=== PATIENT | male | born 1990 | race Caucasian/White ===

== ENCOUNTER 2020-07-09 11:11 | Emergency (ER) | payer BC ==
[2020-07-09 12:23] LABS: Bacteria/HPF None Seen HPF (None Seen); Bilirubin Negative (Negative); Blood, Urine 3+ (Negative); Clarity Extra Turbid (Clear); Glucose, Urine (Dipstick) Normal (Negative); Ketone, Urine Negative (Negative); Leukocyte Negative Leu/uL (Negative); Nitrite Negative (Negative); Protein, Urine (Dipstick) 10 mg/dL (Neg-Trace); RBC/HPF Greater than 50 HPF (0-3); Squamous Epithelial None Seen HPF (0-3); Urobilinogen Normal mg/dL (Less than 2); WBC/HPF None Seen HPF (0-3); pH, Urine 7.5 (5.0-9.0)
[2020-07-09] MEDS ORDERED: Ketorolac Tromethamine 30 MG/ML VIAL ONE (12:52)
[2020-07-09 15:01] LABS: Anion Gap 13 mmol/L (10-20); BUN (Urea Nitrogen) 12 mg/dL (8.9-20.6); Calc. Creatinine Clearance 0 mL/min (70-130); Calcium 9.2 mg/dL (7.8-10.44); Carbon Dioxide 28 mmol/L (22-29); Chloride 105 mmol/L (98-107); Glucose 87 mg/dL (70-105); Potassium 4.1 mmol/L (3.5-5.1); Sodium 142 mmol/L (136-145)
== END 2020-07-09 15:35 | disposition home or self-care (01) ==
LOC: ERS 11:11
DX: N20.2 Calculus of kidney with calculus of ureter (principal); I10 Essential (primary) hypertension; F17.210 Nicotine dependence, cigarettes, uncomplicated
CPT/HCPCS: 36415; 74176; 80048; 81003; 81015; 96372; J1885

== ENCOUNTER 2020-07-22 08:19 | Outpatient (CLI) | payer BC ==
[2020-07-22 10:07] LABS: Hemoglobin 13.9 g/dL (13.5-17.5); Mean Corpuscular Hemoglobin 28.2 pg (27.0-33.0); Mean Platelet Volume 11.6 fl (7.4-10.4); Platelet Count 231 10x3/uL (150-450); RBC Distribution Width 12.7 % (11.5-14.5); Red Blood Cell (RBC) Count 4.93 10x6/uL (4.32-5.72)
[2020-07-22 10:13] LABS: Bilirubin Neg (Negative); Blood, Urine 150 (Negative); Clarity Clear (Clear); Glucose, Urine (Dipstick) Normal (Negative); Ketone, Urine Negative (Negative); Leukocyte Negative (Negative); Nitrite Negative (Negative); Protein, Urine (Dipstick) Negative (Neg-Trace); Specific Gravity, Urine 1.025 (1.002-1.036); Urobilinogen Normal mg/dL (Less than 2)
[2020-07-22 10:14] LABS: Anion Gap 13 mmol/L (10-20); BUN (Urea Nitrogen) 13 mg/dL (8.9-20.6); Calc. Creatinine Clearance 0 mL/min (70-130); Calcium 9.1 mg/dL (7.8-10.44); Carbon Dioxide 26 mmol/L (22-29); Chloride 106 mmol/L (98-107); Glucose 72 mg/dL (70-105); Potassium 4.5 mmol/L (3.5-5.1); Sodium 140 mmol/L (136-145)
[2020-07-22 10:40] LABS: PTT 29.5 sec (22.0-33.0); Prothrombin Time 10.5 sec (9.5-12.1)
[2020-07-22 10:45] LABS: Bacteria/HPF None Seen HPF (None Seen); Mucous/LPF 1+ LPF (<2+); Sperm/HPF 1+ HPF (None Seen); Squamous Epithelial 0-3 HPF (0-3)
[2020-07-22 18:59] LABS: SARS-CoV-2 PCR by NAA Not Detected (NotDetected)
== END 2020-07-22 08:20 | disposition home or self-care (01) ==
LOC: LABBT 08:19
PROVIDERS: ATTEND Urology
DX: Z01.812 Encounter for preprocedural laboratory examination (principal); N20.0 Calculus of kidney; Z20.822 Contact with and (suspected) exposure to COVID-19
CPT/HCPCS: 80048; 81001; 85027; 85610; 85730; 87086; 87635; U0003; U0005

== ENCOUNTER 2020-07-25 08:47 | Day surgery (SDC) | payer BC ==
[2020-07-24 10:43] VITALS: BMI 33.9
[2020-07-25] MEDS ORDERED: Levofloxacin 500 mg/D5W 100 ml Premix Bag ONE (09:42)
[2020-07-25] MEDS ORDERED: Iothalamate Meglumine 60% 50 ML VIAL FS ONE (10:18)
[2020-07-25] MEDS ORDERED: B & O ONE (10:18)
[2020-07-25] MEDS ORDERED: Fentanyl 100 MCG/2 ML VIAL ONE (10:19)
[2020-07-25] MEDS ORDERED: Dexamethasone 20 MG/5 ML VIAL ONE (10:44)
[2020-07-25] MEDS ORDERED: ePHEDrine 50 MG/ML VIAL ONE (10:44)
[2020-07-25] MEDS ORDERED: PROPOFOL 200 MG/20 ML VIAL ONE (10:44)
[2020-07-25] MEDS ORDERED: Rocuronium Bromide 10 MG/ML (10ML VIAL) ONE (10:44)
[2020-07-25] MEDS ORDERED: Lidocaine 1% PF 5 ML VIAL ONE (10:44)
[2020-07-25] MEDS ORDERED: Ondansetron PF 4 MG/2 ML Vial ONE (10:44)
[2020-07-25] MEDS ORDERED: Glycopyrrolate 0.2 MG/ML 5 ML SYRINGE ONE (10:44)
[2020-07-25] MEDS ORDERED: Oxybutynin 5 MG TAB ONE (12:40)
[2020-07-25] MEDS ORDERED: Phenazopyridine HCl 100 MG TAB ONE (12:40)
[2020-08-02 13:10] LABS: CA Oxalate Dihydrate 40 % (.); CA Oxalate Monohydrate 60 % (.); Color Brown (.); Stone Weight 54 mg (.)
== END 2020-07-25 14:00 | disposition home or self-care (01) ==
LOC: SDC 08:47
PROVIDERS: ATTEND Urology
PROC: 0TC38ZZ Extirpation of Matter from Right Kidney Pelvis, Via Natural or Artificial Opening Endoscopic (ICD-10-PCS; principal; 2020-07-25)
PROC: 0T788DZ Dilation of Bilateral Ureters with Intraluminal Device, Via Natural or Artificial Opening Endoscopic (ICD-10-PCS; principal; 2020-07-25)
PROC: 0TC48ZZ Extirpation of Matter from Left Kidney Pelvis, Via Natural or Artificial Opening Endoscopic (ICD-10-PCS; principal; 2020-07-25)
PROC: 0TC68ZZ Extirpation of Matter from Right Ureter, Via Natural or Artificial Opening Endoscopic (ICD-10-PCS; principal; 2020-07-25)
PROC: 0TC78ZZ Extirpation of Matter from Left Ureter, Via Natural or Artificial Opening Endoscopic (ICD-10-PCS; principal; 2020-07-25)
DX: N13.2 Hydronephrosis with renal and ureteral calculous obstruction (principal); F17.200 Nicotine dependence, unspecified, uncomplicated; Z79.899 Other long term (current) drug therapy
CPT/HCPCS: 74420; 82365; 88300; J1100; J1956; J2405; J2704; J3010; J3490; Q9961

== ENCOUNTER 2020-10-16 14:15 | Outpatient (CLI) | payer BC | END 2020-10-16 14:16 | disposition home or self-care (01) | LOC: BICULT 14:15 | PROVIDERS: ATTEND Urology | DX: N20.0 Calculus of kidney (principal); E83.59 Other disorders of calcium metabolism; N29 Other disorders of kidney and ureter in diseases classified elsewhere | CPT/HCPCS: 76770 ==

== ENCOUNTER 2023-06-21 15:44 | Outpatient (CLI) | payer BC ==
[2023-06-21 16:41] LABS: #Basophils 0.1 10x3/uL (0.0-0.2); #Eosinphils 0.4 10x3/uL (0.0-0.5); #Monocytes 0.7 10x3/uL (0.0-1.1); #Neutrophils 4.5 10x3/uL (1.5-8.4); %Basophils 0.7 % (0.0-2.0); %Lymphocytes 30.6 % (18.0-47.0); %Monocytes 8.9 % (0.0-10.0); %Neutrophils 54.7 % (40.0-75.0); Hematocrit 42.8 % (38.8-50.0); Hemoglobin 14.2 g/dL (13.5-17.5); Mean Corpuscular HGB CONC 33.2 g/dL (32.0-36.0); Mean Corpuscular Hemoglobin 28.9 pg (27.0-33.0); Mean Corpuscular Volume 87.2 fl (81.2-95.1); Mean Platelet Volume 11.1 fl (7.4-10.4); Platelet Count 261 10x3/uL (150-450); RBC Distribution Width 12.5 % (11.5-14.5); Red Blood Cell (RBC) Count 4.91 10x6/uL (4.32-5.72); White Blood Cell (WBC) Count 8.3 10x3/uL (3.5-10.5)
== END 2023-06-21 15:45 | disposition home or self-care (01) ==
LOC: LABBT 15:44
PROVIDERS: ATTEND Surgery
DX: Z01.818 Encounter for other preprocedural examination (principal); K60.3 Anal fistula
CPT/HCPCS: 85025; 93005; 93010

== ENCOUNTER 2023-07-08 06:11 | Day surgery (SDC) | payer BC ==
[2023-06-21 16:01] VITALS: BMI 32.8
[2023-07-08] MEDS ORDERED: Bacitracin Zinc Ointment 30 gm TUBE ONE (07:07)
[2023-07-08] MEDS ORDERED: Methylene Blue 50 MG/10 ML AMPUL ONE (07:07)
[2023-07-08] MEDS ORDERED: EPINEPHrine 1 MG/ML VIAL ONE (07:07)
[2023-07-08] MEDS ORDERED: Bupivacaine 0.25% HCL 30 ML VIAL ONE (07:07)
[2023-07-08] MEDS ORDERED: Lidocaine 1% PF 5 ML VIAL ONE (07:30)
[2023-07-08] MEDS ORDERED: fentaNYL PF 100 MCG/2 ML SYRINGE ONE (07:30)
[2023-07-08] MEDS ORDERED: PROPOFOL 20 ML ONE (07:30)
[2023-07-08] MEDS ORDERED: HYDROmorphone 2 MG/ML VIAL ONE (07:30)
[2023-07-08] MEDS ORDERED: Midazolam HCl 2 mg/2 ml Vial ONE (07:31)
[2023-07-08] MEDS ORDERED: cefOXitin 2 GM VIAL ONE (07:32)
[2023-07-08] MEDS ORDERED: Sodium Chloride 0.9% 100 ML ONE (07:32)
[2023-07-08] MEDS ORDERED: Dexamethasone 20 MG/5 ML VIAL ONE (07:38)
[2023-07-08] MEDS ORDERED: Ketorolac Tromethamine 30 MG (1 mL) VIAL ONE (07:38)
[2023-07-08] MEDS ORDERED: Ondansetron PF 4 MG/2 ML Vial ONE (07:38)
== END 2023-07-08 09:55 | disposition home or self-care (01) ==
LOC: SDC 06:11
PROVIDERS: ATTEND Surgery
PROC: 0JBB0ZZ Excision of Perineum Subcutaneous Tissue and Fascia, Open Approach (ICD-10-PCS; principal; 2023-07-08)
DX: K60.3 Anal fistula (principal); I10 Essential (primary) hypertension; F17.210 Nicotine dependence, cigarettes, uncomplicated; Z79.899 Other long term (current) drug therapy; Z87.442 Personal history of urinary calculi
CPT/HCPCS: J0171; J0665; J0694; J1100; J1170; J1885; J2250; J2405; J2704; J3490; Q9968